=== PATIENT | female | born 1985 | race Caucasian/White ===

== ENCOUNTER 2017-04-25 18:57 | Emergency (ER) | payer MEDICAID, OTHER ==
[~2017-04-25] VITALS: Ht 175.3 cm; Wt 82.0 kg
[~2017-04-25 18:57] MED LIST: ALPR-624 PO; CIP750T PO; DOL10T PO; METH-603 PO; METR500T4 PO; MORP30TA PO; QUET200T3 PO
[2017-04-25 19:59] LABS: URINE HCG NEGATIVE (NEG)
[2017-04-25 20:19] LABS: BASOPHILS # (AUTO) 0.1 X10'3 (0-0.2); BASOPHILS % (AUTO) 0.3 % (0-1); EOSINOPHILS % (AUTO) 0 % (0-6); HEMATOCRIT 40.3 % (35.0-45.0); HEMOGLOBIN 13.3 g/dl (12.0-16.0); LYMPHOCYTES # (AUTO) 1.4 X10'3 (1.1-4.8); MEAN CORPUSCULAR HEMOGLOBIN 29.6 PG (27.0-31.0); MEAN CORPUSCULAR VOLUME 89.7 FL (78-98); MEAN PLATELET VOLUME 7.4 FL (7.4-10.4); MONOCYTES # (AUTO) 0.9 X10'3 (0-0.9); MONOCYTES % (AUTO) 5.2 % (2-12); NEUTROPHILS # (AUTO) 15.1 X10'3 (1.8-7.7); NEUTROPHILS % (AUTO) 86.5 % (42-75); PLATELET COUNT 393 X10'3 (140-440); RED BLOOD COUNT 4.49 X10'6 (4.20-5.60); RED CELL DISTRIBUTION WIDTH 14.3 % (11.5-14.5); WHITE BLOOD COUNT 17.5 X10'3 (4.5-11.0)
[2017-04-25 20:43] LABS: ALANINE AMINOTRANSFERASE 24 U/L (12-78); ALBUMIN 4.5 G/DL (3.4-5.0); ALBUMIN/GLOBULIN RATIO 1.2 (1.1-1.5); ALKALINE PHOSPHATASE 58 IU/L (46-116); ANION GAP 9 (8-16); ASPARTATE AMINO TRANSFERASE 23 U/L (10-37); BILIRUBIN,TOTAL 0.2 MG/DL (0.1-1.0); BLOOD UREA NITROGEN 6 MG/DL (7-18); BUN/CREATININE RATIO 8.2 (6.6-38.0); CALCIUM 9.5 MG/DL (8.5-10.1); CHLORIDE 103 MMOL/L (99-107); CREATININE 0.73 MG/DL (0.40-0.90); GLUCOSE 85 MG/DL (70-104); POTASSIUM 3.7 MMOL/L (3.5-5.1); SODIUM 141 MMOL/L (135-145); TOTAL CARBON DIOXIDE 29.3 MMOL/L (24-32); TOTAL PROTEIN 8.4 G/DL (6.4-8.2); eGFR > 90 ML/MIN
[2017-04-25 21:09] VITALS: BP 143/54
[2017-04-25] MEDS ORDERED: naproxen 500mg tablet PO ONE (21:45)
[2017-04-25] MEDS ORDERED: sulfamethoxazole/trimethoprim DS (800/160mg) tablet PO ONE (21:45)
[2017-04-25] MEDS ORDERED: acetaminophen 325mg tablet PO ONE (21:45)
[2017-04-25] MEDS ORDERED: HYDROcodone/acetaminophen 10/325mg tab PO ONE (21:50)
[2017-04-25] MEDS ORDERED: BACDS PO (21:55)
== END 2017-04-25 22:20 | disposition home or self-care (01) ==
LOC: ER 18:58
DX: L03.114 Cellulitis of left upper limb (principal); G89.29 Other chronic pain; F15.10 Other stimulant abuse, uncomplicated; F12.10 Cannabis abuse, uncomplicated; Z86.19 Personal history of other infectious and parasitic diseases; Z93.3 Colostomy status; Z88.0 Allergy status to penicillin
CPT/HCPCS: 36415; 73090; 80053; 81025; 83605; 84145; 85025; 87040; 99285; A4565; J7030

== ENCOUNTER 2018-08-20 08:05 | Emergency (ER) | payer MEDICAID ==
[~2018-08-20] VITALS: Ht 175.3 cm; Wt 71.4 kg
[~2018-08-20 08:05] MED LIST changes: +METR-159 PO; -METR500T4 PO; -QUET200T3 PO; +QUET200T5 PO
--- NOTE | 2018-08-20 08:35 | NUR ---
PT RESTING IN BED NO APPARENT DISTRESS
[2018-08-20 08:43] VITALS: BP 153/78
[2018-08-20 09:21] LABS: ALANINE AMINOTRANSFERASE 29 U/L (12-78); ALBUMIN 3.4 G/DL (3.4-5.0); ALKALINE PHOSPHATASE 71 IU/L (46-116); ANION GAP 9 (8-16); ASPARTATE AMINO TRANSFERASE 15 U/L (10-37); BILIRUBIN,TOTAL 0.2 MG/DL (0.1-1.0); BLOOD UREA NITROGEN 12 MG/DL (7-18); BUN/CREATININE RATIO 16.4 (6.6-38.0); CHLORIDE 104 MMOL/L (99-107); CREATININE 0.73 MG/DL (0.40-0.90); GLUCOSE 87 MG/DL (70-104); POTASSIUM 3.4 MMOL/L (3.5-5.1); SODIUM 140 MMOL/L (135-145); TOTAL CARBON DIOXIDE 27.1 MMOL/L (24-32); TOTAL PROTEIN 6.9 G/DL (6.4-8.2); eGFR > 90 ML/MIN
[2018-08-20] MEDS ORDERED: simethicone 80mg chew tab PO ONE (09:35)
[2018-08-20 10:43] LABS: BASOPHILS % (AUTO) 0.3 % (0-1); EOSINOPHILS % (AUTO) 0.7 % (0-6); HEMATOCRIT 38.2 % (35.0-45.0); HEMOGLOBIN 12.6 g/dl (12.0-16.0); LYMPHOCYTES # (AUTO) 1.3 X10'3 (1.1-4.8); LYMPHOCYTES % (AUTO) 17.1 % (21-51); MEAN CORPUSCULAR HEMOGLOBIN 28.2 PG (27.0-31.0); MEAN CORPUSCULAR HGB CONC 33.2 g/dL (33.0-36.5); MEAN CORPUSCULAR VOLUME 85.2 FL (78-98); MEAN PLATELET VOLUME 7.5 FL (7.4-10.4); MONOCYTES # (AUTO) 0.8 X10'3 (0-0.9); MONOCYTES % (AUTO) 11.3 % (2-12); NEUTROPHILS # (AUTO) 5.2 X10'3 (1.8-7.7); NEUTROPHILS % (AUTO) 70.6 % (42-75); PLATELET COUNT 304 X10'3 (140-440); RED BLOOD COUNT 4.48 X10'6 (4.20-5.60); WHITE BLOOD COUNT 7.3 X10'3 (4.5-11.0)
[2018-08-20] MEDS ORDERED: OSTOMY SUPPLIES (11:27)
[2018-08-20] MEDS ORDERED: SIME80TA16 PO (11:27)
== END 2018-08-20 11:53 | disposition home or self-care (01) ==
LOC: ER 08:06
DX: R19.7 Diarrhea, unspecified (principal); G89.29 Other chronic pain; F12.90 Cannabis use, unspecified, uncomplicated; F15.90 Other stimulant use, unspecified, uncomplicated; Z88.0 Allergy status to penicillin; Z98.890 Other specified postprocedural states; Z88.1 Allergy status to other antibiotic agents; Z79.2 Long term (current) use of antibiotics; Z79.899 Other long term (current) drug therapy
CPT/HCPCS: 36415; 80053; 85025; 99283

== ENCOUNTER 2019-03-14 21:40 | Emergency (ER) | payer MEDICAID ==
[~2019-03-14] VITALS: Ht 175.3 cm; Wt 85.0 kg
[~2019-03-14 21:40] MED LIST changes: +OSTOMY SUPPLIES; +SIME80TA16 PO
--- NOTE | 2019-03-14 23:01 | NUR ---
Provider is with the patient at this time.
[2019-03-14] MEDS ORDERED: ibuprofen 200mg tablet PO ONE (23:20)
[2019-03-14] MEDS ORDERED: LIDOcaine Viscous 15ml cup MM ONE (23:20)
[2019-03-14] MEDS ORDERED: mag hydrox/Alum hydrox/simeth 30ml oral suspension PO ONE (23:20)
[2019-03-14 23:54] VITALS: BP 122/69
[2019-03-15 00:02] LABS: HCG SERUM QL NEGATIVE
[2019-03-15] MEDS ORDERED: VALA500T PO (00:08)
[2019-03-15] MEDS ORDERED: NEOM10DR45 OT (00:08)
[2019-03-16 15:23] LABS: RPR Reactive (Non Reactive)
--- NOTE | 2019-03-18 19:48 | NUR ---
called pt for STI testing results for return to er for treatment left message.
== END 2019-03-15 00:31 | disposition home or self-care (01) ==
LOC: ER 21:40
DX: H60.92 Unspecified otitis externa, left ear (principal); A60.00 Herpesviral infection of urogenital system, unspecified; F41.9 Anxiety disorder, unspecified; G89.29 Other chronic pain; F32.9 Major depressive disorder, single episode, unspecified; F12.90 Cannabis use, unspecified, uncomplicated; F15.90 Other stimulant use, unspecified, uncomplicated; F17.200 Nicotine dependence, unspecified, uncomplicated; Z88.1 Allergy status to other antibiotic agents; Z88.0 Allergy status to penicillin
CPT/HCPCS: 36415; 84703; 86592; 87081; 87491; 87880; 99283; 99284

== ENCOUNTER 2019-04-09 19:41 | Emergency (ER) | payer MEDICAID ==
[~2019-04-09 19:41] MED LIST changes: +NEOM10DR45 OT; +VALA500T PO
--- NOTE | 2019-04-09 20:00 | NUR ---
PT WAS ROOMED IN BED 18 . PT HAD HER DOG WITH HER THAT SHE SAID WAS A SERVICE ANIMAL. WHILE I WAS PUTTING BLOOD PRESSURE CUFF ON THE ARM THE DOG STARTED TO GET AGGRESSUIVE . PT STATES HE PROTECTIVE. WHEN RAJEEV TUCKER" WALKED IN THE ROOM TO TALK TO PT THE DOG BECAME MORE AGGRESIVE TOWARDS ALL STAFF . WE OFFERED THAT SHE CAN PUT THE DOG OUTSIDE , THEN THE PT GOT AGGRESSIVE AND STARTED TO CUSS AND YELL AT ALL STAFF MEMEBRS. ALL STAFF MEMEBERS INCLUDE, SECURITY, PIETER"LAVELL", RAJEEV TUCKER; AND MY SELF.
--- NOTE | 2019-04-09 20:05 | NUR ---
attempted to triage patient when asked to leave her "service dog" in the lobby patient refused. Attempted to triage patient in 18 and patient became aggressive when asked what service the dog provides. The dog aggressively barked at [employer] [facility]. It was states to the patient that this situation is not going to work with the dog. The patient called Rn and "arrogant asshole" and stormed out with her dog.
== END 2019-04-09 20:09 | disposition left against medical advice (07) ==
LOC: ER 19:42
DX: Z00.8 Encounter for other general examination (principal); Z53.21 Procedure and treatment not carried out due to patient leaving prior to being seen by health care provider

== ENCOUNTER 2019-06-25 23:23 | Emergency (ER) | payer MEDICAID ==
[~2019-06-25] VITALS: Ht 175.3 cm; Wt 81.8 kg
[~2019-06-25 23:23] MED LIST changes: -NEOM10DR45 OT; -VALA500T PO
[2019-06-25 23:40] VITALS: BP 129/80
[2019-06-25] MEDS ORDERED: CefTRIAXone 250MG IM Kit w/LIDOcaine IM ONE (23:45)
[2019-06-25] MEDS ORDERED: azithromycin 250mg tablet PO ONE (23:45)
[2019-06-26] MEDS ORDERED: DOXY100C43 PO (00:28)
[2019-06-26] MEDS ORDERED: [UNRECOGNIZED DRUG - CODE] (00:41)
== END 2019-06-26 00:43 | disposition home or self-care (01) ==
LOC: ER 23:23
DX: A53.9 Syphilis, unspecified (principal); A54.9 Gonococcal infection, unspecified; R49.9 Unspecified voice and resonance disorder; G89.29 Other chronic pain; F41.9 Anxiety disorder, unspecified; F32.9 Major depressive disorder, single episode, unspecified; F17.210 Nicotine dependence, cigarettes, uncomplicated; F12.90 Cannabis use, unspecified, uncomplicated; F15.90 Other stimulant use, unspecified, uncomplicated; Z86.19 Personal history of other infectious and parasitic diseases; Z88.0 Allergy status to penicillin; Z88.1 Allergy status to other antibiotic agents; Z79.899 Other long term (current) drug therapy
CPT/HCPCS: 96372; 99283; J0696

== ENCOUNTER 2019-07-22 17:45 | Emergency (ER) | payer MEDICAID ==
[~2019-07-22] VITALS: Ht 175.3 cm; Wt 88.3 kg
[~2019-07-22 17:45] MED LIST changes: +[UNRECOGNIZED DRUG - CODE]
[2019-07-22 17:52] VITALS: BP 124/88
== END 2019-07-22 19:00 | disposition left against medical advice (07) ==
LOC: ER 17:46
DX: Z00.8 Encounter for other general examination (principal); Z53.21 Procedure and treatment not carried out due to patient leaving prior to being seen by health care provider

== ENCOUNTER 2019-08-21 21:12 | Emergency (ER) | payer MEDICAID ==
[~2019-08-21] VITALS: Ht 175.3 cm; Wt 80.0 kg
[2019-08-21 21:13] VITALS: BP 11/73
[2019-08-21] MEDS ORDERED: ACET-3068 PO (21:56)
--- NOTE | 2019-08-21 21:59 | NUR ---
ODESSA TRAVIS DOING ORTHO ORDERS PER DR. BRIDGETTE SHAH
== END 2019-08-21 22:10 | disposition home or self-care (01) ==
LOC: ER 21:13
DX: S52.501A Unspecified fracture of the lower end of right radius, initial encounter for closed fracture (principal); F41.9 Anxiety disorder, unspecified; F32.9 Major depressive disorder, single episode, unspecified; F12.90 Cannabis use, unspecified, uncomplicated; F15.90 Other stimulant use, unspecified, uncomplicated; Z88.0 Allergy status to penicillin; Z79.2 Long term (current) use of antibiotics; Z98.890 Other specified postprocedural states; Z79.899 Other long term (current) drug therapy; Z86.19 Personal history of other infectious and parasitic diseases; W50.2XXA Accidental twist by another person, initial encounter; Y93.01 Activity, walking, marching and hiking; Y92.89 Other specified places as the place of occurrence of the external cause; Y99.8 Other external cause status
CPT/HCPCS: 29515; 73610; 99284

== ENCOUNTER 2019-11-21 10:34 | Emergency (ER) | payer MEDICAID ==
[~2019-11-21] VITALS: Ht 175.3 cm; Wt 81.8 kg
[2019-11-21 11:04] VITALS: BP 126/88
[2019-11-21] MEDS ORDERED: PERM60CR19 TP (11:59)
[2019-11-21] MEDS ORDERED: CETI10TA18 PO (11:59)
== END 2019-11-21 12:21 | disposition home or self-care (01) ==
LOC: ER 10:34
DX: S40.862A Insect bite (nonvenomous) of left upper arm, initial encounter (principal); S40.861A Insect bite (nonvenomous) of right upper arm, initial encounter; J06.9 Acute upper respiratory infection, unspecified; R05 Cough; R06.02 Shortness of breath; E11.9 Type 2 diabetes mellitus without complications; G89.29 Other chronic pain; F41.9 Anxiety disorder, unspecified; F32.9 Major depressive disorder, single episode, unspecified; F12.90 Cannabis use, unspecified, uncomplicated; F15.90 Other stimulant use, unspecified, uncomplicated; Z86.19 Personal history of other infectious and parasitic diseases; Z98.890 Other specified postprocedural states; Z88.0 Allergy status to penicillin; Z79.2 Long term (current) use of antibiotics; Z79.899 Other long term (current) drug therapy; W57.XXXA Bitten or stung by nonvenomous insect and other nonvenomous arthropods, initial encounter; Y93.89 Activity, other specified; Y92.89 Other specified places as the place of occurrence of the external cause; Y99.8 Other external cause status
CPT/HCPCS: 99283

== ENCOUNTER 2022-09-25 17:22 | Emergency (ER) | payer MEDICAID ==
[~2022-09-25] VITALS: Ht 175.3 cm; Wt 110.0 kg
[~2022-09-25 17:22] MED LIST changes: +CETI10TA19 PO; -CIP750T PO; +CIPR750T14 PO
[2022-09-25 17:26] VITALS: BP 135/86
== END 2022-09-25 18:59 | disposition left against medical advice (07) ==
LOC: ER 17:22
DX: R06.02 Shortness of breath (principal); Z53.21 Procedure and treatment not carried out due to patient leaving prior to being seen by health care provider
CPT/HCPCS: 99281

== ENCOUNTER 2023-01-30 01:18 | Inpatient (IN) | payer MEDICAID ==
[~2023-01-30] VITALS: Ht 175.3 cm; Wt 104.5 kg
[2023-01-30] MEDS ORDERED: acetaminophen 325mg tablet PO STA (02:59)
[2023-01-30] MEDS ORDERED: normal saline 1000ML IV soln IV ONE (03:00)
[2023-01-30] MEDS ORDERED: vancomycin/NS 1 GM ADD-VANTAGE 250 ML IV ONE (03:00)
[2023-01-30] MEDS ORDERED: morphine 4 MG/ML inj SYRINge IV ONE (03:10)
[2023-01-30] MEDS ORDERED: ondansetron/PF 4mg/2ml inj IV ONE (03:10)
[2023-01-30] MEDS ORDERED: clindamycin 600mg/D5W 50ml 50 ML IV ONE (03:11)
--- NOTE | 2023-01-30 03:11 | NUR ---
vascular on the way. Moved pt to Fast track into a room for privacy. Tech with the patient. Sara MONTE will establish line and labs on the patient.
--- NOTE | 2023-01-30 03:35 | NUR ---
[employer] AT BEDSIDE FOR VASCULAR STUDY
[2023-01-30 03:50] LABS: BASOPHILS % (AUTO) 0.6 % (0-1); EOSINOPHILS # (AUTO) 0.1 X10'3 (0-0.9); EOSINOPHILS % (AUTO) 2.9 % (0-6); HEMATOCRIT 32.5 % (35.0-45.0); HEMOGLOBIN 10.5 g/dl (12.0-16.0); LYMPHOCYTES # (AUTO) 1.5 X10'3 (1.1-4.8); LYMPHOCYTES % (AUTO) 33.1 % (21-51); MEAN CORPUSCULAR HEMOGLOBIN 27.1 PG (27.0-31.0); MEAN CORPUSCULAR HGB CONC 32.2 g/dL (33.0-36.5); MEAN CORPUSCULAR VOLUME 84.2 FL (78-98); MEAN PLATELET VOLUME 6.9 FL (7.4-10.4); MONOCYTES # (AUTO) 0.6 X10'3 (0-0.9); NEUTROPHILS # (AUTO) 2.2 X10'3 (1.8-7.7); NEUTROPHILS % (AUTO) 50.4 % (42-75); PLATELET COUNT 361 X10'3 (140-440); RED BLOOD COUNT 3.86 X10'6 (4.20-5.60); RED CELL DISTRIBUTION WIDTH 18.6 % (11.5-14.5); WHITE BLOOD COUNT 4.4 X10'3 (4.5-11.0)
[2023-01-30 03:58] LABS: ALANINE AMINOTRANSFERASE 37 U/L (12-78); ALBUMIN 3.3 G/DL (3.4-5.0); ALBUMIN/GLOBULIN RATIO 0.8 (1.1-1.5); ALKALINE PHOSPHATASE 226 IU/L (46-116); ANION GAP 5 (8-16); ASPARTATE AMINO TRANSFERASE 24 U/L (10-37); BILIRUBIN,TOTAL 0.2 MG/DL (0.1-1.0); BLOOD UREA NITROGEN 7 MG/DL (7-18); BUN/CREATININE RATIO 10.3 (10.0-20.0); C-REACTIVE PROTEIN 0.96 MG/DL (0.0-0.5); CALCIUM 9.4 MG/DL (8.5-10.1); CHLORIDE 105 MMOL/L (99-107); CREATININE 0.68 MG/DL (0.40-0.90); GLUCOSE 111 MG/DL (70-104); POTASSIUM 3.4 MMOL/L (3.5-5.1); SODIUM 140 MMOL/L (135-145); TOTAL CARBON DIOXIDE 30.4 MMOL/L (24-32); TOTAL PROTEIN 7.6 G/DL (6.4-8.2); eCRCL 117 ML/MIN; eGFR > 90 ML/MIN
[2023-01-30 05:30] LABS: ANISOCYTOSIS 2+; PLATELET ESTIMATE NORMAL
[2023-01-30] MEDS ORDERED: magnesium Cl slow-release 64mg tablet PO PRN (05:35)
[2023-01-30] MEDS ORDERED: magnesium hydroxide 30ml (MOM) UD suspension PO PRN (05:35)
[2023-01-30] MEDS ORDERED: mag hydrox/Alum hydrox/simeth 30ml oral suspension PO PRN (05:35)
[2023-01-30] MEDS ORDERED: acetaminophen 325mg tablet PO PRN (05:35)
[2023-01-30] MEDS ORDERED: magnesium 2GM in 50ml NS 50 ML IV PRN (05:35)
[2023-01-30] MEDS ORDERED: potassium Cl 40MEQ/1/2NS 520ml 520 ML IV PRN (05:35)
[2023-01-30] MEDS ORDERED: ondansetron/PF 4mg/2ml inj IV PRN (05:35)
[2023-01-30] MEDS ORDERED: magnesium 4gm in 100ml NS 100 ML IV PRN (05:35)
[2023-01-30] MEDS ORDERED: potassium Cl 20 mEq SR tablet PO PRN (05:35)
[2023-01-30 07:50] LABS: MAGNESIUM 1.8 MG/DL (1.5-2.4)
[2023-01-30] MEDS: K and/or MAG REPLACEMENT MC SCH ×2 (08:00→20:00)
[2023-01-30] MEDS ORDERED: linezolid 600mg tablet PO SCH ×2 (08:00)
[2023-01-30] MEDS: docusate sod 100mg capsule PO SCH ×2 (08:00→20:42)
--- NOTE | 2023-01-30 08:08 | NUR ---
RN PAGED DR GARNICA ED 8- PT DENIES HX OF DM. PLS CXL PROTOCOL UNLESS NECESSARY. THKS
--- NOTE | 2023-01-30 08:19 | NUR ---
CULTURES HAVE NOT RESULTED. RN CONFIRMED WITH PHARM TO GIVE ZYVOX P/T RESULT. RN WILL ADMIN.
--- NOTE | 2023-01-30 08:20 | NUR ---
PT REFUSED TO HAVING ACCUCK D/T SHE DOES NOT HAVE DM
[2023-01-30] MEDS: heparin, porcine 5000 units/ml vial SQ SCH ×2 (08:33→20:41)
[2023-01-30] MEDS: potassium Cl 20 mEq SR tablet PO PRN ×2 (10:59→20:41)
[2023-01-30] MEDS: HYDROcodone/acetaminophen 5mg/325mg tablet PO PRN ×2 (10:59→20:42)
[2023-01-30 11:37] LABS: URINE HCG NEGATIVE (NEG)
[2023-01-30 11:39] LABS: BILIRUBIN,URINE NEGATIVE (Neg); CLARITY,URINE CLOUDY (Clear); COLOR,URINE YELLOW (Yellow); GLUCOSE, URINE NEGATIVE (Neg); KETONES,URINE NEGATIVE (Neg); LEUKOCYTE ESTERASE ,URINE SMALL (Neg); NITRITES, URINE NEGATIVE (Neg); OCCULT BLOOD,URINE SMALL (Neg); PROTEIN,URINE TRACE mg/dl (Neg)
[2023-01-30 11:44] LABS: UA COLLECTION TYPE CLN CATCH MIDSTREAM
[2023-01-30 11:46] LABS: AMORPHOUS URATES 1+; BACTERIA,URINE 1+ /HPF (Neg); CAL OXALATE CRYSTALS 1+ /HPF (NEGATIVE); MUCUS STRANDS FEW /LPF (Neg); SQUAMOUS EPITHELIAL CELL,UR MANY /LPF (FEW); WBC,URINE 0-4 /HPF (0-4)
[2023-01-30] MEDS: vancomycin/NS 1 GM ADD-VANTAGE 250 ML IV SCH ×2 (12:44→20:42)
[2023-01-30] MEDS ORDERED: VANCOmycin 1250MG/NS 250ml Bag 250 ML IV SCH (14:00)
--- NOTE | 2023-01-30 18:10 | NUR ---
RN ATTEMPTED TO CALL REPORT FOR RN TAKING PT IN RM 4013A AND THEY ARE GETTING REPORT AND CAN NOT TAKE REPORT AT THIS TIME. RN WILL SBAR TO RN COMING IN TO ED FOR NOC.
[2023-01-30 19:00] VITALS: BP 130/86; PULSE 102; RESP 18; TEMP 98.5; O2SAT 95
[2023-01-30] MEDS ORDERED: NO HOME MEDS (19:02)
--- NOTE | 2023-01-30 19:03 | NUR ---
PT REPORTED SHE TAKES NO HOME MEDS.
[2023-01-30 22:00] VITALS: BP 126/78; PULSE 96; RESP 16; TEMP 97.9; O2SAT 97
[2023-01-31] MEDS ORDERED: VANCOMYCIN LEVEL IV ONE (03:30)
[2023-01-31] MEDS: vancomycin/NS 1 GM ADD-VANTAGE 250 ML IV SCH (04:08)
[2023-01-31 04:11] LABS: ALANINE AMINOTRANSFERASE 36 U/L (12-78); ALBUMIN 2.8 G/DL (3.4-5.0); ALBUMIN/GLOBULIN RATIO 0.8 (1.1-1.5); ALKALINE PHOSPHATASE 187 IU/L (46-116); ANION GAP 3 (8-16); ASPARTATE AMINO TRANSFERASE 20 U/L (10-37); BILIRUBIN,TOTAL 0.1 MG/DL (0.1-1.0); BLOOD UREA NITROGEN 4 MG/DL (7-18); BUN/CREATININE RATIO 6.3 (10.0-20.0); C-REACTIVE PROTEIN 0.57 MG/DL (0.0-0.5); CALCIUM 9.1 MG/DL (8.5-10.1); CHLORIDE 104 MMOL/L (99-107); CREATININE 0.64 MG/DL (0.40-0.90); GLUCOSE 117 MG/DL (70-104); MAGNESIUM 1.7 MG/DL (1.5-2.4); SODIUM 138 MMOL/L (135-145); TOTAL CARBON DIOXIDE 30.7 MMOL/L (24-32); TOTAL PROTEIN 6.5 G/DL (6.4-8.2); VANCOMYCIN,TROUGH 11.9 ug/mL (10.0-20.0); eCRCL 125 ML/MIN; eGFR > 90 ML/MIN
[2023-01-31 04:12] LABS: HEMATOCRIT 29.4 % (35.0-45.0); HEMOGLOBIN 9.6 g/dl (12.0-16.0); MEAN PLATELET VOLUME 7.1 FL (7.4-10.4); RED CELL DISTRIBUTION WIDTH 18.2 % (11.5-14.5)
[2023-01-31 04:14] LABS: BASOPHILS % (AUTO) 0.8 % (0-1); EOSINOPHILS # (AUTO) 0.1 X10'3 (0-0.9); EOSINOPHILS % (AUTO) 4.4 % (0-6); LYMPHOCYTES # (AUTO) 1.4 X10'3 (1.1-4.8); LYMPHOCYTES % (AUTO) 48.5 % (21-51); MEAN CORPUSCULAR HEMOGLOBIN 27.8 PG (27.0-31.0); MEAN CORPUSCULAR HGB CONC 32.7 g/dL (33.0-36.5); MEAN CORPUSCULAR VOLUME 84.9 FL (78-98); MONOCYTES # (AUTO) 0.4 X10'3 (0-0.9); MONOCYTES % (AUTO) 14.4 % (2-12); NEUTROPHILS # (AUTO) 0.9 X10'3 (1.8-7.7); NEUTROPHILS % (AUTO) 31.9 % (42-75); PLATELET COUNT 302 X10'3 (140-440); RED BLOOD COUNT 3.46 X10'6 (4.20-5.60); WHITE BLOOD COUNT 2.8 X10'3 (4.5-11.0)
[2023-01-31 05:00] VITALS: BP 129/71; PULSE 91; RESP 14; TEMP 98.3; O2SAT 97
--- NOTE | 2023-01-31 06:31 | NUR ---
Problems reprioritized. Patient report given, questions answered & plan of care reviewed with WANDER Ibrahim RN.
[2023-01-31 07:14] LABS: TOTAL CELLS COUNTED 100
[2023-01-31 07:15] LABS: ANISOCYTOSIS 2+; PLATELET ESTIMATE NORMAL; POIKILOCYTOSIS FEW
[2023-01-31] MEDS: K and/or MAG REPLACEMENT MC SCH ×2 (07:35→20:00)
[2023-01-31] MEDS: docusate sod 100mg capsule PO SCH ×2 (07:39→20:00)
[2023-01-31] MEDS: HYDROcodone/acetaminophen 5mg/325mg tablet PO PRN ×2 (07:40→20:01)
[2023-01-31] MEDS: heparin, porcine 5000 units/ml vial SQ SCH ×2 (07:41→20:00)
[2023-01-31 07:42] LABS: HEMOGLOBIN A1C 5.2 % (4.5-6.2)
[2023-01-31 10:00] VITALS: BP 127/72; PULSE 95; RESP 16; TEMP 98.5; O2SAT 97
[2023-01-31] MEDS: VANCOmycin 1250MG/NS 250ml Bag 250 ML IV SCH ×2 (13:14→20:00)
[2023-01-31 18:00] VITALS: BP 114/70; PULSE 82; RESP 16; TEMP 98.1; O2SAT 98
--- NOTE | 2023-01-31 18:51 | NUR ---
Report given to Zack Flor. Pt ate dinner and no new complaints at this time.
[2023-01-31 20:00] VITALS: RESP 16; O2SAT 96
[2023-01-31] MEDS: gabapentin 100mg capsule PO SCH (20:00)
[2023-01-31 22:00] VITALS: BP 120/72; PULSE 92; RESP 15; TEMP 97.9; O2SAT 96
[2023-02-01] MEDS: VANCOmycin 1250MG/NS 250ml Bag 250 ML IV SCH ×3 (04:10→20:40)
[2023-02-01] MEDS: HYDROcodone/acetaminophen 10/325mg tab PO PRN ×3 (05:36→20:40)
[2023-02-01 06:00] VITALS: BP 136/73; PULSE 95; RESP 16; TEMP 97.5; O2SAT 98
--- NOTE | 2023-02-01 06:10 | NUR ---
Patient in room ORTHO 4013. I have received report from Christy MONTE and had the opportunity to ask questions and assume patient care.
--- NOTE | 2023-02-01 06:23 | NUR ---
Problems reprioritized. Patient report given, questions answered & plan of care reviewed with BRET MCGOWAN.
[2023-02-01 06:48] LABS: BASOPHILS % (AUTO) 0.6 % (0-1); EOSINOPHILS # (AUTO) 0.1 X10'3 (0-0.9); EOSINOPHILS % (AUTO) 2.7 % (0-6); HEMATOCRIT 30.5 % (35.0-45.0); HEMOGLOBIN 9.9 g/dl (12.0-16.0); LYMPHOCYTES # (AUTO) 1.1 X10'3 (1.1-4.8); LYMPHOCYTES % (AUTO) 36.1 % (21-51); MEAN CORPUSCULAR HEMOGLOBIN 27.6 PG (27.0-31.0); MEAN CORPUSCULAR HGB CONC 32.5 g/dL (33.0-36.5); MEAN CORPUSCULAR VOLUME 84.7 FL (78-98); MEAN PLATELET VOLUME 6.8 FL (7.4-10.4); MONOCYTES # (AUTO) 0.4 X10'3 (0-0.9); MONOCYTES % (AUTO) 12.4 % (2-12); NEUTROPHILS # (AUTO) 1.5 X10'3 (1.8-7.7); NEUTROPHILS % (AUTO) 48.2 % (42-75); PLATELET COUNT 296 X10'3 (140-440); RED CELL DISTRIBUTION WIDTH 18.1 % (11.5-14.5); WHITE BLOOD COUNT 3.1 X10'3 (4.5-11.0)
[2023-02-01 06:54] LABS: ALANINE AMINOTRANSFERASE 35 U/L (12-78); ALBUMIN 2.8 G/DL (3.4-5.0); ALBUMIN/GLOBULIN RATIO 0.8 (1.1-1.5); ALKALINE PHOSPHATASE 185 IU/L (46-116); ANION GAP 6 (8-16); ASPARTATE AMINO TRANSFERASE 24 U/L (10-37); BILIRUBIN,TOTAL 0.2 MG/DL (0.1-1.0); BLOOD UREA NITROGEN 5 MG/DL (7-18); BUN/CREATININE RATIO 6.9 (10.0-20.0); C-REACTIVE PROTEIN 0.26 MG/DL (0.0-0.5); CHLORIDE 103 MMOL/L (99-107); CREATININE 0.72 MG/DL (0.40-0.90); GLUCOSE 119 MG/DL (70-104); MAGNESIUM 1.6 MG/DL (1.5-2.4); POTASSIUM 3.6 MMOL/L (3.5-5.1); SODIUM 139 MMOL/L (135-145); TOTAL CARBON DIOXIDE 29.8 MMOL/L (24-32); TOTAL PROTEIN 6.5 G/DL (6.4-8.2); eCRCL 111 ML/MIN; eGFR > 90 ML/MIN
[2023-02-01] MEDS: heparin, porcine 5000 units/ml vial SQ SCH ×2 (07:32→20:00)
[2023-02-01] MEDS: gabapentin 100mg capsule PO SCH ×2 (07:32→20:40)
[2023-02-01 08:00] VITALS: RESP 16; O2SAT 98
[2023-02-01] MEDS: docusate sod 100mg capsule PO SCH ×2 (08:00→20:00)
[2023-02-01] MEDS: K and/or MAG REPLACEMENT MC SCH ×2 (08:00→20:00)
[2023-02-01 10:00] VITALS: BP 138/75; PULSE 62; RESP 18; TEMP 97.6; O2SAT 96
--- NOTE | 2023-02-01 11:02 | NUR ---
Put in wound consult per Dr. Lewis. I also called inpatient wound care and LMOM stating a wound consult was placed
[2023-02-01] MEDS ORDERED: VANCOMYCIN LEVEL IV ONE (11:30)
--- NOTE | 2023-02-01 14:07 | NUR ---
Pharmacist was notified of Vanco level 17.5. No new orders and dose given.
[2023-02-01 18:00] VITALS: BP 125/78; PULSE 91; RESP 20; TEMP 98.5; O2SAT 96
--- NOTE | 2023-02-01 18:00 | NUR ---
I have reviewed and agree with interventions, assessments, and documentation by Saloni Barry LVN.
--- NOTE | 2023-02-01 18:19 | NUR ---
Problems reprioritized. Patient report given, questions answered & plan of care reviewed with Christy MONTE.
[2023-02-01 20:00] VITALS: RESP 20; O2SAT 96
[2023-02-01 22:00] VITALS: BP 108/60; PULSE 92; RESP 15; TEMP 98.5; O2SAT 97
[2023-02-02] MEDS: VANCOmycin 1250MG/NS 250ml Bag 250 ML IV SCH ×3 (04:03→21:28)
[2023-02-02 06:00] VITALS: BP 112/55; PULSE 90; RESP 16; TEMP 97.8; O2SAT 94
--- NOTE | 2023-02-02 06:15 | NUR ---
Patient in room ORTHO 4013. I have received report from Dony MONTE and had the opportunity to ask questions and assume patient care.
--- NOTE | 2023-02-02 06:24 | NUR ---
Problems reprioritized. Patient report given, questions answered & plan of care reviewed with BRET MCGOWAN.
[2023-02-02 06:33] LABS: BASOPHILS % (AUTO) 0.8 % (0-1); EOSINOPHILS # (AUTO) 0.1 X10'3 (0-0.9); EOSINOPHILS % (AUTO) 3.2 % (0-6); HEMATOCRIT 32.4 % (35.0-45.0); HEMOGLOBIN 10.4 g/dl (12.0-16.0); LYMPHOCYTES # (AUTO) 1.4 X10'3 (1.1-4.8); LYMPHOCYTES % (AUTO) 42.4 % (21-51); MEAN CORPUSCULAR HEMOGLOBIN 27.1 PG (27.0-31.0); MEAN CORPUSCULAR HGB CONC 32.2 g/dL (33.0-36.5); MEAN CORPUSCULAR VOLUME 84.3 FL (78-98); MEAN PLATELET VOLUME 6.9 FL (7.4-10.4); MONOCYTES # (AUTO) 0.5 X10'3 (0-0.9); MONOCYTES % (AUTO) 15.4 % (2-12); NEUTROPHILS # (AUTO) 1.3 X10'3 (1.8-7.7); NEUTROPHILS % (AUTO) 38.2 % (42-75); PLATELET COUNT 294 X10'3 (140-440); RED BLOOD COUNT 3.85 X10'6 (4.20-5.60); RED CELL DISTRIBUTION WIDTH 18.3 % (11.5-14.5); WHITE BLOOD COUNT 3.4 X10'3 (4.5-11.0)
[2023-02-02 06:57] LABS: ALANINE AMINOTRANSFERASE 61 U/L (12-78); ALBUMIN 2.9 G/DL (3.4-5.0); ALBUMIN/GLOBULIN RATIO 0.7 (1.1-1.5); ALKALINE PHOSPHATASE 193 IU/L (46-116); ANION GAP 7 (8-16); ASPARTATE AMINO TRANSFERASE 55 U/L (10-37); BILIRUBIN,TOTAL 0.3 MG/DL (0.1-1.0); BLOOD UREA NITROGEN 9 MG/DL (7-18); BUN/CREATININE RATIO 12.9 (10.0-20.0); CALCIUM 9.2 MG/DL (8.5-10.1); CHLORIDE 102 MMOL/L (99-107); GLUCOSE 101 MG/DL (70-104); MAGNESIUM 1.7 MG/DL (1.5-2.4); POTASSIUM 4.2 MMOL/L (3.5-5.1); SODIUM 137 MMOL/L (135-145); TOTAL CARBON DIOXIDE 28.2 MMOL/L (24-32); TOTAL PROTEIN 6.9 G/DL (6.4-8.2); eCRCL 114 ML/MIN; eGFR > 90 ML/MIN
[2023-02-02] MEDS: K and/or MAG REPLACEMENT MC SCH ×2 (07:37→20:00)
[2023-02-02 07:45] LABS: ANISOCYTOSIS 2+; LARGE PLATELETS FEW; PLATELET ESTIMATE NORMAL
[2023-02-02] MEDS: gabapentin 100mg capsule PO SCH ×2 (07:55→20:06)
[2023-02-02] MEDS: heparin, porcine 5000 units/ml vial SQ SCH ×2 (07:55→20:00)
[2023-02-02] MEDS: docusate sod 100mg capsule PO SCH ×2 (07:59→20:00)
[2023-02-02 08:00] VITALS: RESP 16; O2SAT 94
--- NOTE | 2023-02-02 08:30 | NUR ---
During patient assessment I noticed that patient had a vape pen in her bed. I advised patient that she is unable to have the pen due to the hospital being a no smoking facility. Patient denied to give it to me. I advised the charge nurse and doctor.
[2023-02-02 10:00] VITALS: BP 110/60; PULSE 98; RESP 16; TEMP 98.4; O2SAT 98
[2023-02-02] MEDS: HYDROcodone/acetaminophen 10/325mg tab PO PRN ×2 (10:40→20:11)
--- NOTE | 2023-02-02 10:46 | NUR ---
after talking to the patient about this again, she agreed to give it to her friend.
[2023-02-02 13:21] LABS: HBSAG SCREEN Negative (Negative)
--- NOTE | 2023-02-02 14:59 | NUR ---
WOUND INFECTION EDUCATION PROVIDED BY WOUND CARE 1. Patient instructed to call their primary doctor, or go the ED immediately if any of the following symptoms occur: * Increased pain in wound * Increase in drainage from the wound * Redness in the skin surrounding the wound * Warmth in the skin surrounding the wound * Bleeding from the wound * Temperature of 101 or greater 2. If any of these occur while in the hospital tell a nurse immediately. Addendum: 02/02/23 at 1459 by Dee Dee Navarro LVN Amended: Links added.
[2023-02-02 16:35] LABS: URINE AMPHETAMINE SCREEN POSITIVE (Neg); URINE BARBITUATE SCREEN NEGATIVE (Neg); URINE BENZODIAZEPINES SCREEN NEGATIVE (Neg); URINE CANNABINOID SCREEN NEGATIVE (Neg); URINE COCAINE SCREEN NEGATIVE (Neg); URINE METHADONE SCREEN NEGATIVE (Neg); URINE OPIATE SCREEN POSITIVE (Neg); URINE PHENCYCLIDINE SCREEN NEGATIVE (Neg)
--- NOTE | 2023-02-02 17:00 | NUR ---
I have reviewed and agree with interventions, assessments, and documentation by Saloni Barry LVN.
--- NOTE | 2023-02-02 17:00 | NUR ---
Patient tox report results are in. I called the resident Dr. Atkins and advised her of the positive results.
[2023-02-02 18:00] VITALS: BP 139/82; PULSE 113; RESP 16; TEMP 98.1; O2SAT 97
--- NOTE | 2023-02-02 18:39 | NUR ---
Problems reprioritized. Patient report given, questions answered & plan of care reviewed with Randa MONTE.
--- NOTE | 2023-02-02 19:00 | NUR ---
UPON CHANGE OF SHIFT PT WAS NOWHERE TO BE FOUND. CALLED SECURITY AND SHE WAS DOWN STAIRS IN THE LOBBY. SECURITY BROUGHT HER BACK UP TO THE FLOOR. PT REMOVED HER DRESSING AND HAS BEEN RESISTIVE TO CARE AT TIMES.
[2023-02-02 19:29] VITALS: RESP 20; O2SAT 97
[2023-02-02] MEDS ORDERED: ciprofloxacin lact 400MG/200ML 200 ML IV SCH (20:00)
--- NOTE | 2023-02-02 20:51 | NUR ---
urine color, clarity, and odor was per patient report. Addendum: 02/02/23 at 2100 by Daylin BALES Amended: Links added.
[2023-02-02 22:00] VITALS: BP 114/63; PULSE 98; RESP 16; TEMP 98.5; O2SAT 97
--- NOTE | 2023-02-02 23:57 | NUR ---
Student Medication Administration: For this medication-pass time frame, all medication were reviewed, dispensed, administered and documented per hospital policy by Odilon Mcgrath [facility].
[2023-02-03] VITALS (7 sets, daily range): BP systolic 115–130; BP diastolic 62–80; PULSE 98–110; RESP 14–17; TEMP 98–98.2; O2SAT 97–99
[2023-02-03] MEDS: VANCOmycin 1250MG/NS 250ml Bag 250 ML IV SCH (04:12)
--- NOTE | 2023-02-03 06:30 | NUR ---
Patient in room ORTHO 4013. I have received report from Randa MONTE and had the opportunity to ask questions and assume patient care.
--- NOTE | 2023-02-03 06:34 | NUR ---
Problems reprioritized. Patient report given, questions answered & plan of care reviewed with BRET MCGOWAN.
[2023-02-03] MEDS: gabapentin 100mg capsule PO SCH ×2 (07:53→19:55)
[2023-02-03] MEDS: heparin, porcine 5000 units/ml vial SQ SCH ×2 (07:54→20:00)
[2023-02-03] MEDS: docusate sod 100mg capsule PO SCH ×2 (08:00→19:54)
[2023-02-03] MEDS: K and/or MAG REPLACEMENT MC SCH ×2 (08:00→20:00)
[2023-02-03 09:09] LABS: BASOPHILS % (AUTO) 0.7 % (0-1); EOSINOPHILS # (AUTO) 0.1 X10'3 (0-0.9); EOSINOPHILS % (AUTO) 3.3 % (0-6); HEMATOCRIT 35.3 % (35.0-45.0); HEMOGLOBIN 11.3 g/dl (12.0-16.0); LYMPHOCYTES # (AUTO) 1.2 X10'3 (1.1-4.8); LYMPHOCYTES % (AUTO) 32.9 % (21-51); MEAN CORPUSCULAR HEMOGLOBIN 26.8 PG (27.0-31.0); MEAN CORPUSCULAR HGB CONC 31.9 g/dL (33.0-36.5); MEAN CORPUSCULAR VOLUME 83.9 FL (78-98); MEAN PLATELET VOLUME 7.1 FL (7.4-10.4); MONOCYTES # (AUTO) 0.5 X10'3 (0-0.9); MONOCYTES % (AUTO) 13.2 % (2-12); NEUTROPHILS # (AUTO) 1.8 X10'3 (1.8-7.7); NEUTROPHILS % (AUTO) 49.9 % (42-75); PLATELET COUNT 320 X10'3 (140-440); RED BLOOD COUNT 4.21 X10'6 (4.20-5.60); RED CELL DISTRIBUTION WIDTH 18.3 % (11.5-14.5); WHITE BLOOD COUNT 3.5 X10'3 (4.5-11.0)
[2023-02-03] MEDS: linezolid 600mg tablet PO SCH ×2 (09:20→19:55)
[2023-02-03 09:33] LABS: ALANINE AMINOTRANSFERASE 108 U/L (12-78); ALBUMIN 3.2 G/DL (3.4-5.0); ALBUMIN/GLOBULIN RATIO 0.8 (1.1-1.5); ALKALINE PHOSPHATASE 205 IU/L (46-116); ANION GAP 6 (8-16); ASPARTATE AMINO TRANSFERASE 70 U/L (10-37); BILIRUBIN,TOTAL 0.3 MG/DL (0.1-1.0); BLOOD UREA NITROGEN 8 MG/DL (7-18); BUN/CREATININE RATIO 13.1 (10.0-20.0); C-REACTIVE PROTEIN 0.23 MG/DL (0.0-0.5); CALCIUM 9.6 MG/DL (8.5-10.1); CHLORIDE 101 MMOL/L (99-107); CREATININE 0.61 MG/DL (0.40-0.90); GLUCOSE 133 MG/DL (70-104); MAGNESIUM 1.7 MG/DL (1.5-2.4); POTASSIUM 3.8 MMOL/L (3.5-5.1); SODIUM 136 MMOL/L (135-145); TOTAL CARBON DIOXIDE 28.9 MMOL/L (24-32); TOTAL PROTEIN 7.4 G/DL (6.4-8.2); eCRCL 131 ML/MIN; eGFR > 90 ML/MIN
[2023-02-03 10:11] LABS: HEPATITIS C VIRUS ANTIBODY Non Reactive (Non Reactive)
[2023-02-03] MEDS: HYDROcodone/acetaminophen 10/325mg tab PO PRN ×2 (13:15→21:19)
--- NOTE | 2023-02-03 14:16 | NUR ---
Patient states "the ball of my right foot is numb and tingles Addendum: 02/03/23 at 1444 by Rosa BALES Amended: Links added.
--- NOTE | 2023-02-03 14:29 | NUR ---
Stoma is beefy red in appearance. Skin surrounding the stoma is warm, dry, and intact. Addendum: 02/03/23 at 1444 by Rosa BALES Amended: Links added.
--- NOTE | 2023-02-03 17:00 | NUR ---
I have reviewed and agree with interventions, assessments, and documentation by Saloni Barry LVN.
--- NOTE | 2023-02-03 18:30 | NUR ---
Shortly after shift change, patient was taking a shower without her IV site protected with a wrap. When patient got out the shower, her IV was pulled out. Patient is a hard stick. Will wait for day shift picc nurse to get another IV if need. Patient isn't currently getting IV fluids or IV medications
--- NOTE | 2023-02-03 20:10 | NUR ---
Patient refuses to take her heparin tonight, states she only wants to take heparin only during the day.
[2023-02-04] VITALS (8 sets, daily range): BP systolic 102–123; BP diastolic 56–71; PULSE 88–101; RESP 16–18; TEMP 97.9–98.3; O2SAT 96–98
--- NOTE | 2023-02-04 02:30 | NUR ---
Patient in room ORTHO 4013. I have received report from Saloni and had the opportunity to ask questions and assume patient care.
--- NOTE | 2023-02-04 02:52 | NUR ---
Agree with Allison Acevedo Physical assessment except for what I charted.
--- NOTE | 2023-02-04 02:54 | NUR ---
Problems reprioritized. Patient report given, questions answered & plan of care reviewed with Kelin Morales RN.
[2023-02-04] MEDS: K and/or MAG REPLACEMENT MC SCH ×2 (07:25→20:00)
[2023-02-04] MEDS: heparin, porcine 5000 units/ml vial SQ SCH ×2 (07:25→20:00)
[2023-02-04] MEDS: docusate sod 100mg capsule PO SCH ×2 (07:25→20:00)
[2023-02-04] MEDS: gabapentin 100mg capsule PO SCH ×2 (07:31→20:04)
[2023-02-04] MEDS: linezolid 600mg tablet PO SCH ×2 (07:32→20:04)
[2023-02-04] MEDS: HYDROcodone/acetaminophen 10/325mg tab PO PRN ×2 (07:33→13:53)
[2023-02-04] MEDS ORDERED: midazolam 1 mg/ML 2ml injection ONE (08:08)
[2023-02-04] MEDS ORDERED: fentaNYL/PF 50MCG/1 ML 2ML syringe ONE (08:08)
[2023-02-04] MEDS ORDERED: LIDOcaine 1% (10mg/ml) 2ml vial ONE (08:08)
--- NOTE | 2023-02-04 08:26 | NUR ---
RE: Michael in , pt refused drainage with angio, refused labs, IV, just fyi. She's asking to eat. Kelin [phone]
[2023-02-04] MEDS ORDERED: LACT1CAP26 PO (12:26)
[2023-02-04] MEDS ORDERED: LINE600T14 PO (12:26)
--- NOTE | 2023-02-04 13:00 | NUR ---
Lizzette consult: Pt seen at bedside for written/verbal low tyramine nutrition education. RD contact also provided and encouraged pt to reach out for any nutrition questions or concerns. Addendum: 02/04/23 at [address] Amended: Links added.
--- NOTE | 2023-02-04 13:52 | NUR ---
WOUND INFECTION EDUCATION PROVIDED BY WOUND CARE 1. Patient instructed to call their primary doctor, or go the ED immediately if any of the following symptoms occur: * Increased pain in wound * Increase in drainage from the wound * Redness in the skin surrounding the wound * Warmth in the skin surrounding the wound * Bleeding from the wound * Temperature of 101 or greater 2. If any of these occur while in the hospital tell a nurse immediately. Education concerning evidence based wound care practices provided to the patient as well as wound care demonstration. Addendum: 02/04/23 at 1356 by Dee Dee Navarro LVN Amended: Links added.
--- NOTE | 2023-02-04 18:26 | NUR ---
Problems reprioritized. Patient report given, questions answered & plan of care reviewed with Prudence.
--- NOTE | 2023-02-04 18:59 | NUR ---
Patient in room ORTHO 4013. I have received report from TERRANCE Reza RN and had the opportunity to ask questions and assume patient care.
[2023-02-05 06:00] VITALS: BP 94/54; PULSE 87; RESP 16; TEMP 98.7; O2SAT 99
--- NOTE | 2023-02-05 06:19 | NUR ---
Patient in room ORTHO 4013. I have received report from LAVELL Dawkins and had the opportunity to ask questions and assume patient care.
[2023-02-05] MEDS: gabapentin 100mg capsule PO SCH (07:37)
[2023-02-05] MEDS: HYDROcodone/acetaminophen 10/325mg tab PO PRN (07:37)
[2023-02-05] MEDS: linezolid 600mg tablet PO SCH (07:37)
[2023-02-05 08:00] VITALS: RESP 16; O2SAT 96
[2023-02-05] MEDS: heparin, porcine 5000 units/ml vial SQ SCH (08:00)
[2023-02-05] MEDS: docusate sod 100mg capsule PO SCH (08:00)
[2023-02-05] MEDS: K and/or MAG REPLACEMENT MC SCH (08:00)
[2023-02-05 08:37] VITALS: RESP 16
--- NOTE | 2023-02-05 14:30 | NUR ---
SHALE PLANER OPERATOR HELPER documentation: I have reviewed and agree with all interventions, assessments performed and documented by Silviano Shields LVN.
--- NOTE | 2023-02-05 15:28 | NUR ---
Pt left facility at 1510. Nurse was in the process of preparing discharge paperwork and went into patients room and patient was gone. Patient had been dressed ready for discharge with all personal belongings at 1500 when nurse told her she was going to prepare paperwork. Patient decided she did not want to wait for discharge paperwork. Patient was found at [facility] and stated "what's the point of signing paperwork i already know my meds are ready i got a text that they were at the pharmacy." pt is homeless and was offered community resource information and she still declined stating "i can call a friend to pick me up" IV had already been discontinued prior to d/c. Patient did leave with all personal belongings and was stable for discharge.
== END 2023-02-05 15:10 | disposition home or self-care (01) | DRG 383 ==
LOC: ER 01:24 → ED HOLD 05:37 → ORTHO 4S 20:13
PROVIDERS: ADMIT Internal Medicine; ATTEND Family Medicine
DX: L03.115 Cellulitis of right lower limb (principal); E11.9 Type 2 diabetes mellitus without complications; L02.416 Cutaneous abscess of left lower limb; F41.9 Anxiety disorder, unspecified; G89.29 Other chronic pain; F17.200 Nicotine dependence, unspecified, uncomplicated; F15.10 Other stimulant abuse, uncomplicated; F32.A Depression, unspecified; Z79.899 Other long term (current) drug therapy; Z88.0 Allergy status to penicillin; Z93.3 Colostomy status
CPT/HCPCS: 36415; 73700; 80053; 80202; 80305; 81001; 81025; 83036; 83605; 83735; 84145; 85007; 85008; 85025; 85651; 86140; 86592; 86704; 86803; 87040; 87340; 87522; 93926; 93971; 97161; 97542; 97760; 99285; A4421; A4615; A4649; A6258; A6266; A6446; A6449; G0378; J0744; J1644; J2250; J2270; J2405; J3010; J3370; J3490; J7030; J7040

== ENCOUNTER 2023-04-06 17:27 | Inpatient (IN) | payer MEDICAID ==
[~2023-04-06] VITALS: Ht 175.3 cm; Wt 72.7 kg
[~2023-04-06 17:27] MED LIST changes: -CIPR750T14 PO; +LACT1CAP26 PO; +LINE600T14 PO; -METR-159 PO; -OSTOMY SUPPLIES
[2023-04-06] MEDS ORDERED: normal saline 1000ML IV soln IVB ONE ×3 (19:30→22:55)
[2023-04-06] MEDS ORDERED: normal saline 1000ml 1,000 ML IV ONE (19:30)
[2023-04-06] MEDS ORDERED: ketorolac tromethamine 15mg/ml inj. IV ONE (19:30)
[2023-04-06] MEDS ORDERED: HYDROmorphone 1 mg/ml syringe IV ONE (19:30)
[2023-04-06] MEDS ORDERED: ketorolac trometh. 30mg/ml inj. IM ONE (20:25)
[2023-04-06] MEDS ORDERED: ketorolac trometh inj. 60 MG/2 ML VIAL IM ONE (20:25)
[2023-04-06] MEDS ORDERED: HYDROmorphone 1 mg/ml syringe IM ONE (20:25)
[2023-04-06 21:22] LABS: BASOPHILS # (AUTO) 0.1 X10'3 (0-0.2); BASOPHILS % (AUTO) 0.6 % (0-1); EOSINOPHILS % (AUTO) 0.1 % (0-6); HEMATOCRIT 34.4 % (35.0-45.0); HEMOGLOBIN 10.9 g/dl (12.0-16.0); LYMPHOCYTES # (AUTO) 0.9 X10'3 (1.1-4.8); LYMPHOCYTES % (AUTO) 6.9 % (21-51); MEAN CORPUSCULAR HGB CONC 31.8 g/dL (33.0-36.5); MEAN CORPUSCULAR VOLUME 78.5 FL (78-98); MEAN PLATELET VOLUME 7.7 FL (7.4-10.4); MONOCYTES # (AUTO) 0.8 X10'3 (0-0.9); NEUTROPHILS # (AUTO) 11.1 X10'3 (1.8-7.7); NEUTROPHILS % (AUTO) 86.4 % (42-75); PLATELET COUNT 468 X10'3 (140-440); RED BLOOD COUNT 4.38 X10'6 (4.20-5.60); RED CELL DISTRIBUTION WIDTH 18.6 % (11.5-14.5); WHITE BLOOD COUNT 12.8 X10'3 (4.5-11.0)
[2023-04-06 21:46] LABS: ALANINE AMINOTRANSFERASE 23 U/L (12-78); ALBUMIN 3.3 G/DL (3.4-5.0); ALBUMIN/GLOBULIN RATIO 0.7 (1.1-1.5); ALKALINE PHOSPHATASE 187 IU/L (46-116); ANION GAP 5 (8-16); ASPARTATE AMINO TRANSFERASE 15 U/L (10-37); BILIRUBIN,TOTAL 0.2 MG/DL (0.1-1.0); BLOOD UREA NITROGEN 10 MG/DL (7-18); BUN/CREATININE RATIO 15.9 (10.0-20.0); CALCIUM 9.1 MG/DL (8.5-10.1); CHLORIDE 102 MMOL/L (99-107); CREATININE 0.63 MG/DL (0.40-0.90); GLUCOSE 133 MG/DL (70-104); LIPASE 42 U/L (16-77); MAGNESIUM 1.6 MG/DL (1.5-2.4); POTASSIUM 3.9 MMOL/L (3.5-5.1); SODIUM 135 MMOL/L (135-145); TOTAL CARBON DIOXIDE 28.4 MMOL/L (24-32); TOTAL PROTEIN 8.2 G/DL (6.4-8.2); eCRCL 125 ML/MIN; eGFR > 90 ML/MIN
[2023-04-06 21:47] LABS: ETHANOL < 10 MG/DL (<10)
[2023-04-06 21:54] LABS: ANISOCYTOSIS 2+; PLATELET ESTIMATE INCREASED
[2023-04-06 21:55] LABS: MICROCYTOSIS 1+; STOMATOCYTES FEW
[2023-04-06] MEDS ORDERED: NAPR-56 PO ×2 (22:58)
[2023-04-06] MEDS ORDERED: DOXYCYCLINE 100MG CAPSULE PO STA (23:18)
[2023-04-06] MEDS ORDERED: cyclobenzaprine 10mg tablet PO ONE (23:20)
[2023-04-07] MEDS ORDERED: potassium Cl 40MEQ/1/2NS 520ml 520 ML IV PRN (01:05)
[2023-04-07] MEDS ORDERED: ondansetron/PF 4mg/2ml inj IV PRN (01:05)
[2023-04-07] MEDS ORDERED: mag hydrox/Alum hydrox/simeth 30ml oral suspension PO PRN (01:05)
[2023-04-07] MEDS ORDERED: magnesium 4gm in 100ml NS 100 ML IV PRN (01:05)
[2023-04-07] MEDS ORDERED: potassium Cl 20 mEq SR tablet PO PRN ×2 (01:05)
[2023-04-07] MEDS ORDERED: magnesium hydroxide 30ml (MOM) UD suspension PO PRN (01:05)
[2023-04-07] MEDS ORDERED: acetaminophen 325mg tablet PO PRN (01:05)
[2023-04-07] MEDS ORDERED: magnesium Cl slow-release 64mg tablet PO PRN (01:05)
[2023-04-07] MEDS ORDERED: magnesium 2GM in 50ml NS 50 ML IV PRN (01:05)
[2023-04-07] MEDS ORDERED: HYDROcodone/acetaminophen 10/325mg tab PO PRN (01:05)
[2023-04-07] MEDS ORDERED: linezolid 600mg tablet PO ONE (01:10)
[2023-04-07] MEDS ORDERED: LORazepam 1 MG tablet PO ONE (01:40)
[2023-04-07] MEDS: oxyCODONE IR 5mg (immed. release) tablet PO PRN ×5 (01:47→21:48)
[2023-04-07 08:00] VITALS: BP 127/80; PULSE 109; RESP 18; TEMP 98.2; O2SAT 92
[2023-04-07] MEDS: K and/or MAG REPLACEMENT MC SCH ×2 (08:00→20:00)
[2023-04-07] MEDS ORDERED: heparin, porcine 5000 units/ml vial SQ SCH (08:00)
[2023-04-07] MEDS: docusate sod 100mg capsule PO SCH ×2 (08:59→21:48)
[2023-04-07] MEDS: linezolid 600mg tablet PO SCH ×2 (09:00→21:47)
[2023-04-07 10:00] VITALS: BP 109/51; PULSE 112; RESP 20; TEMP 99.9; O2SAT 96
[2023-04-07] MEDS ORDERED: bisacodyl 5mg tablet.DR PO PRN (10:25)
[2023-04-07 10:49] LABS: C-REACTIVE PROTEIN 13.51 MG/DL (0.0-0.5); MAGNESIUM 1.7 MG/DL (1.5-2.4); POTASSIUM 3.8 MMOL/L (3.5-5.1)
[2023-04-07] MEDS ORDERED: morphine 2 MG/ML inj. syringe IV ONE (13:40)
[2023-04-07] MEDS ORDERED: iohexol 350MG/ML 100ml bottle IV ONE (14:32)
[2023-04-07] MEDS ORDERED: gabapentin 300mg capsule PO ONE (14:51)
[2023-04-07] MEDS ORDERED: HYDROmorphone 1 mg/ml syringe IV ONE (15:00)
[2023-04-07 17:48] LABS: URINE HCG NEGATIVE (NEG)
[2023-04-07 17:57] LABS: BILIRUBIN,URINE NEGATIVE (Neg); CLARITY,URINE CLOUDY (Clear); COLOR,URINE YELLOW (Yellow); GLUCOSE, URINE NEGATIVE (Neg); KETONES,URINE NEGATIVE (Neg); LEUKOCYTE ESTERASE ,URINE NEGATIVE (Neg); NITRITES, URINE NEGATIVE (Neg); OCCULT BLOOD,URINE NEGATIVE (Neg); PH,URINE 7.5 (4.8-8.0); PROTEIN,URINE NEGATIVE (Neg)
[2023-04-07 18:00] VITALS: BP 107/62; PULSE 110; RESP 14; TEMP 97.6; O2SAT 97
[2023-04-07 18:10] LABS: UA COLLECTION TYPE CLN CATCH MIDSTREAM
[2023-04-07 18:12] LABS: SQUAMOUS EPITHELIAL CELL,UR MANY /LPF (FEW)
[2023-04-07 18:16] LABS: TRANSITIONAL EPI CELLS,URINE FEW /HPF
[2023-04-07 18:20] LABS: AMORPHOUS PHOSPHATES 4+
[2023-04-07 18:21] LABS: BACTERIA,URINE FEW /HPF (Neg); RBC,URINE 0-2 /HPF (0-2); WBC,URINE 0-4 /HPF (0-4)
[2023-04-07 18:22] LABS: RENAL CELLS, URINE FEW /HPF
[2023-04-07 18:49] LABS: URINE AMPHETAMINE SCREEN POSITIVE (Neg); URINE BARBITUATE SCREEN NEGATIVE (Neg); URINE BENZODIAZEPINES SCREEN NEGATIVE (Neg); URINE CANNABINOID SCREEN POSITIVE (Neg); URINE COCAINE SCREEN NEGATIVE (Neg); URINE METHADONE SCREEN NEGATIVE (Neg); URINE OPIATE SCREEN POSITIVE (Neg); URINE PHENCYCLIDINE SCREEN NEGATIVE (Neg)
[2023-04-07] MEDS: gabapentin 300mg capsule PO SCH (21:47)
[2023-04-07 22:00] VITALS: BP 106/66; PULSE 113; RESP 16; TEMP 98.5; O2SAT 97
[2023-04-08] VITALS (8 sets, daily range): BP systolic 99–120; BP diastolic 61–71; PULSE 105–113; RESP 16–20; TEMP 97.4–99.6; O2SAT 94–96
[2023-04-08 07:37] LABS: BASOPHILS % (AUTO) 0.3 % (0-1); EOSINOPHILS % (AUTO) 0.2 % (0-6); HEMATOCRIT 32.4 % (35.0-45.0); HEMOGLOBIN 10.6 g/dl (12.0-16.0); LYMPHOCYTES # (AUTO) 1.2 X10'3 (1.1-4.8); LYMPHOCYTES % (AUTO) 14.6 % (21-51); MEAN CORPUSCULAR HEMOGLOBIN 25.6 PG (27.0-31.0); MEAN CORPUSCULAR HGB CONC 32.7 g/dL (33.0-36.5); MEAN CORPUSCULAR VOLUME 78.2 FL (78-98); MEAN PLATELET VOLUME 7.7 FL (7.4-10.4); MONOCYTES # (AUTO) 0.9 X10'3 (0-0.9); MONOCYTES % (AUTO) 11.1 % (2-12); NEUTROPHILS # (AUTO) 6.3 X10'3 (1.8-7.7); NEUTROPHILS % (AUTO) 73.8 % (42-75); PLATELET COUNT 377 X10'3 (140-440); RED BLOOD COUNT 4.15 X10'6 (4.20-5.60); RED CELL DISTRIBUTION WIDTH 18.4 % (11.5-14.5); WHITE BLOOD COUNT 8.5 X10'3 (4.5-11.0)
[2023-04-08] MEDS: K and/or MAG REPLACEMENT MC SCH ×2 (08:00→20:00)
[2023-04-08] MEDS: gabapentin 300mg capsule PO SCH ×3 (08:42→21:00)
[2023-04-08] MEDS: docusate sod 100mg capsule PO SCH ×2 (08:43→19:48)
[2023-04-08] MEDS: linezolid 600mg tablet PO SCH ×2 (08:44→19:48)
[2023-04-08] MEDS: oxyCODONE IR 5mg (immed. release) tablet PO PRN ×3 (08:44→19:49)
[2023-04-08 09:16] LABS: ALANINE AMINOTRANSFERASE 18 U/L (12-78); ALBUMIN 2.6 G/DL (3.4-5.0); ALBUMIN/GLOBULIN RATIO 0.5 (1.1-1.5); ALKALINE PHOSPHATASE 163 IU/L (46-116); ANION GAP 7 (8-16); ASPARTATE AMINO TRANSFERASE 16 U/L (10-37); BILIRUBIN,TOTAL 0.4 MG/DL (0.1-1.0); BLOOD UREA NITROGEN 4 MG/DL (7-18); BUN/CREATININE RATIO 6.2 (10.0-20.0); CHLORIDE 97 MMOL/L (99-107); CREATININE 0.65 MG/DL (0.40-0.90); GLUCOSE 107 MG/DL (70-104); MAGNESIUM 1.7 MG/DL (1.5-2.4); POTASSIUM 3.7 MMOL/L (3.5-5.1); SODIUM 131 MMOL/L (135-145); TOTAL CARBON DIOXIDE 26.9 MMOL/L (24-32); TOTAL PROTEIN 7.6 G/DL (6.4-8.2); eCRCL 121 ML/MIN; eGFR > 90 ML/MIN
[2023-04-08 09:36] LABS: C-REACTIVE PROTEIN 26.12 MG/DL (0.0-0.5)
[2023-04-08] MEDS ORDERED: HYDROmorphone/PF 0.2 MG/ML SYRINGE IV ONE ×2 (15:55→16:05)
[2023-04-08] MEDS: lactose-reduced food (Ensure Enlive) - 237ml bottle PO SCH (18:00)
[2023-04-08] MEDS ORDERED: NO HOME MEDS (20:47)
[2023-04-09] MEDS: oxyCODONE IR 5mg (immed. release) tablet PO PRN ×3 (01:55→15:59)
[2023-04-09 06:00] VITALS: BP 110/71; PULSE 102; RESP 16; TEMP 97.8; O2SAT 97
[2023-04-09 07:14] LABS: BASOPHILS % (AUTO) 0.3 % (0-1); EOSINOPHILS % (AUTO) 0.7 % (0-6); HEMATOCRIT 32.2 % (35.0-45.0); HEMOGLOBIN 10.5 g/dl (12.0-16.0); LYMPHOCYTES # (AUTO) 1.1 X10'3 (1.1-4.8); LYMPHOCYTES % (AUTO) 15.8 % (21-51); MEAN CORPUSCULAR HEMOGLOBIN 25.1 PG (27.0-31.0); MEAN CORPUSCULAR HGB CONC 32.6 g/dL (33.0-36.5); MEAN CORPUSCULAR VOLUME 77.2 FL (78-98); MEAN PLATELET VOLUME 7.3 FL (7.4-10.4); MONOCYTES # (AUTO) 0.9 X10'3 (0-0.9); MONOCYTES % (AUTO) 12.1 % (2-12); NEUTROPHILS % (AUTO) 71.1 % (42-75); PLATELET COUNT 390 X10'3 (140-440); RED BLOOD COUNT 4.16 X10'6 (4.20-5.60); RED CELL DISTRIBUTION WIDTH 18.4 % (11.5-14.5); WHITE BLOOD COUNT 7.1 X10'3 (4.5-11.0)
[2023-04-09 07:29] LABS: ALANINE AMINOTRANSFERASE 55 U/L (12-78); ALBUMIN 2.4 G/DL (3.4-5.0); ALBUMIN/GLOBULIN RATIO 0.4 (1.1-1.5); ALKALINE PHOSPHATASE 189 IU/L (46-116); ANION GAP 5 (8-16); ASPARTATE AMINO TRANSFERASE 37 U/L (10-37); BILIRUBIN,TOTAL 0.3 MG/DL (0.1-1.0); BLOOD UREA NITROGEN 8 MG/DL (7-18); BUN/CREATININE RATIO 12.9 (10.0-20.0); C-REACTIVE PROTEIN 24.89 MG/DL (0.0-0.5); CALCIUM 9.2 MG/DL (8.5-10.1); CHLORIDE 98 MMOL/L (99-107); CREATININE 0.62 MG/DL (0.40-0.90); GLUCOSE 120 MG/DL (70-104); MAGNESIUM 1.9 MG/DL (1.5-2.4); POTASSIUM 3.9 MMOL/L (3.5-5.1); SODIUM 134 MMOL/L (135-145); TOTAL CARBON DIOXIDE 30.6 MMOL/L (24-32); TOTAL PROTEIN 7.8 G/DL (6.4-8.2); eCRCL 127 ML/MIN; eGFR > 90 ML/MIN
[2023-04-09] MEDS: linezolid 600mg tablet PO SCH ×2 (07:59→20:36)
[2023-04-09] MEDS: gabapentin 300mg capsule PO SCH ×3 (07:59→20:36)
[2023-04-09] MEDS: K and/or MAG REPLACEMENT MC SCH ×2 (08:00→20:45)
[2023-04-09] MEDS: docusate sod 100mg capsule PO SCH ×2 (08:00→20:00)
[2023-04-09] MEDS: lactose-reduced food (Ensure Enlive) - 237ml bottle PO SCH ×3 (08:00→18:00)
[2023-04-09] MEDS: morphine 2 MG/ML inj. syringe IV PRN ×2 (09:37→23:28)
[2023-04-09 10:00] VITALS: BP 99/48; PULSE 106; RESP 16; TEMP 97.1; O2SAT 97
[2023-04-09] MEDS ORDERED: LORazepam 2 mg/ml vial IV ONE (14:45)
[2023-04-09] MEDS ORDERED: morphine 4 MG/ML inj SYRINge IV ONE (16:45)
[2023-04-09 18:00] VITALS: BP 117/61; PULSE 97; RESP 16; TEMP 97.4; O2SAT 96
[2023-04-09 20:00] VITALS: RESP 16; O2SAT 96
[2023-04-09 22:00] VITALS: BP 97/52; PULSE 99; RESP 15; TEMP 98.2; O2SAT 100
[2023-04-10 06:00] VITALS: BP 94/55; PULSE 94; RESP 17; TEMP 97.7; O2SAT 95
[2023-04-10 06:28] LABS: ALANINE AMINOTRANSFERASE 37 U/L (12-78); ALBUMIN 2.4 G/DL (3.4-5.0); ALBUMIN/GLOBULIN RATIO 0.4 (1.1-1.5); ALKALINE PHOSPHATASE 171 IU/L (46-116); ANION GAP 7 (8-16); ASPARTATE AMINO TRANSFERASE 19 U/L (10-37); BILIRUBIN,TOTAL 0.2 MG/DL (0.1-1.0); BLOOD UREA NITROGEN 7 MG/DL (7-18); BUN/CREATININE RATIO 11.3 (10.0-20.0); C-REACTIVE PROTEIN 16.02 MG/DL (0.0-0.5); CALCIUM 9.4 MG/DL (8.5-10.1); CHLORIDE 99 MMOL/L (99-107); CREATININE 0.62 MG/DL (0.40-0.90); GLUCOSE 114 MG/DL (70-104); MAGNESIUM 1.9 MG/DL (1.5-2.4); POTASSIUM 4.1 MMOL/L (3.5-5.1); SODIUM 136 MMOL/L (135-145); TOTAL CARBON DIOXIDE 30.4 MMOL/L (24-32); TOTAL PROTEIN 8.1 G/DL (6.4-8.2); eCRCL 127 ML/MIN; eGFR > 90 ML/MIN
[2023-04-10] MEDS: gabapentin 300mg capsule PO SCH (07:02)
[2023-04-10] MEDS: linezolid 600mg tablet PO SCH (07:02)
[2023-04-10] MEDS: morphine 2 MG/ML inj. syringe IV PRN (07:10)
[2023-04-10] MEDS: docusate sod 100mg capsule PO SCH (07:11)
[2023-04-10 07:43] LABS: BASOPHILS % (AUTO) 0.2 % (0-1); EOSINOPHILS # (AUTO) 0.1 X10'3 (0-0.9); EOSINOPHILS % (AUTO) 1.3 % (0-6); HEMATOCRIT 31.7 % (35.0-45.0); HEMOGLOBIN 10.4 g/dl (12.0-16.0); LYMPHOCYTES % (AUTO) 17.6 % (21-51); MEAN CORPUSCULAR HEMOGLOBIN 25.6 PG (27.0-31.0); MEAN CORPUSCULAR HGB CONC 32.9 g/dL (33.0-36.5); MEAN CORPUSCULAR VOLUME 77.9 FL (78-98); MEAN PLATELET VOLUME 7.1 FL (7.4-10.4); MONOCYTES # (AUTO) 0.6 X10'3 (0-0.9); MONOCYTES % (AUTO) 10.6 % (2-12); NEUTROPHILS % (AUTO) 70.3 % (42-75); PLATELET COUNT 468 X10'3 (140-440); RED BLOOD COUNT 4.06 X10'6 (4.20-5.60); WHITE BLOOD COUNT 5.7 X10'3 (4.5-11.0)
[2023-04-10 08:00] VITALS: RESP 16; O2SAT 95
[2023-04-10] MEDS: K and/or MAG REPLACEMENT MC SCH (08:00)
[2023-04-10] MEDS: lactose-reduced food (Ensure Enlive) - 237ml bottle PO SCH (08:00)
[2023-04-10 10:00] VITALS: BP 113/61; PULSE 99; RESP 19; TEMP 98.2; O2SAT 97
== END 2023-04-10 12:20 | disposition left against medical advice (07) | DRG 351 ==
LOC: ER 17:27 → ED HOLD 04-07 01:08 → ORTHO 4S 04-07 07:10
PROVIDERS: ADMIT Internal Medicine; ATTEND Family Medicine
DX: M25.552 Pain in left hip (principal); E11.9 Type 2 diabetes mellitus without complications; F32.A Depression, unspecified; G89.29 Other chronic pain; Z53.29 Procedure and treatment not carried out because of patient's decision for other reasons; F41.9 Anxiety disorder, unspecified; Z86.19 Personal history of other infectious and parasitic diseases; Z88.0 Allergy status to penicillin; Z88.1 Allergy status to other antibiotic agents; Z86.718 Personal history of other venous thrombosis and embolism; Z56.0 Unemployment, unspecified
CPT/HCPCS: 36415; 73552; 73701; 73718; 74176; 80053; 80305; 80320; 81001; 81025; 83605; 83690; 83735; 84132; 84145; 85008; 85025; 85651; 86140; 87040; 87081; 99285; G0378; J1170; J1885; J2060; J2270; J2405; J3490; J7030; Q9967

== ENCOUNTER 2024-12-28 03:22 | Emergency (ER) | payer MEDICAID ==
[~2024-12-28] VITALS: Ht 175.3 cm; Wt 100.0 kg
[~2024-12-28 03:22] MED LIST changes: -ALPR-624 PO; -CETI10TA19 PO; -DOL10T PO; -LACT1CAP26 PO; -LINE600T14 PO; -METH-603 PO; -MORP30TA PO; +NO HOME MEDS; -QUET200T5 PO; -SIME80TA16 PO
[2024-12-28 03:30] VITALS: TEMP 98.2
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
[2024-12-28 07:04] VITALS: BP 120/71; PULSE 88; RESP 15; O2SAT 99
--- NOTE | 2024-12-28 07:08 | VASCULAR REPORT ---
Left lower extremity venous duplex Clinical History: Left Calf Pain. Swelling. Comparison: None. Findings: Duplex Doppler evaluation of the deep venous systems of left lower extremity from the common femoral veins to the popliteal veins including color Doppler and spectral/pulsed waveform analysis was perfor med. LEFT SIDE: The common femoral vein demonstrates appropriate compressibility and waveform variability. There is compressibility/patency of the great saphenous vein at the proximal thigh. The femoral vein demonstrates appropriate compressibility and waveform variability. The deep femoral vein demonstrates appropriate compressibility and waveform variability. The popliteal vein demonstrates appropriate compressibility and waveform variability. There is normal compressibility at the tibioperoneal trunk. The right common femoral vein was scanned for comparison and is patent. Impression: 1. No deep venous thrombosis in the left lower extremity.
[2024-12-28] MEDS ORDERED: SULF1TAB49 PO (07:14)
[2024-12-28] MEDS: sulfamethoxazole/trimethoprim DS (800/160mg) tablet PO ONE (07:35)
== END 2024-12-28 07:41 | disposition home or self-care (01) ==
LOC: ER 03:23
DX: L03.116 Cellulitis of left lower limb (principal); R60.0 Localized edema; E11.9 Type 2 diabetes mellitus without complications; Z86.19 Personal history of other infectious and parasitic diseases; Z86.718 Personal history of other venous thrombosis and embolism; Z88.0 Allergy status to penicillin; Z88.8 Allergy status to other drugs, medicaments and biological substances
CPT/HCPCS: 93971; 99284; A6258; A6449